=== PATIENT | male | born 1945 | race Caucasian/White ===

== ENCOUNTER 2017-10-18 15:26 | Inpatient (IN) | payer OTHER, MEDICARE ==
[2017-10-18 15:58] VITALS: BMI 30.7
[2017-10-18 16:48] LABS: EOS # 0.2 K/uL (0.0-0.7); HEMOGLOBIN 14.1 g/dL (12.0-18.0)
[2017-10-18 17:04] LABS: INR 1.1; PROTHROMBIN TIME 12.2 SECONDS (9.7-12.2)
[2017-10-18 17:07] LABS: ALB/GLOB RATIO 1.5 (1.0-2.1); ALBUMIN 4.4 g/dL (3.5-5.0); ALT/SGPT 47 U/L (21-72); AST/SGOT 24 U/L (17-59); BLOOD UREA NITROGEN 15 mg/dL (9-20); CALCIUM 9.2 mg/dl (8.6-10.4); GFR AFRICAN-AMERICAN > 60; GFR NON-AFRICAN AMERICAN > 60
[2017-10-18 17:13] LABS: BASO # 0.1 K/uL (0.0-0.2); BASO % 0.8 % (0.0-2.0); EOS % 2.5 % (0.0-4.0); LYMPH # 1.8 K/uL (1.0-4.3); MEAN CELL VOLUME 87.7 fL (80.0-94.0); MEAN CORPUSCULAR HEMOGLOBIN 30.8 pg (27.0-31.0); MEAN CORPUSCULAR HGB CONC 35.1 g/dL (33.0-37.0); MEAN PLATELET VOLUME 9.5 fL (7.2-11.7); MONO # 0.6 K/uL (0.0-0.8); NEUT # 5.8 K/uL (1.8-7.0); NEUT % 68.7 % (50.0-75.0); NRBC % 0.2 % (0.0-2.0); RBC 4.58 Mil/uL (4.40-5.90); WHITE BLOOD COUNT 8.4 K/uL (4.8-10.8)
[2017-10-18 17:16] LABS: B-TYPE NATRIURETIC PEPTIDE 63.6 pg/mL (0-900)
--- NOTE | 2017-10-18 17:26 | C.PDOC ---
History Of Present Illness 72 year old male presents to the emergency department with complaints of chest pressure and SOB for the past 2 days. He reports that the pain is located to the left side of his chest. Patient states he was seen by Dr. Henley and was sent to ER for evaluation and admission. Time Seen by Provider: 10/18/17 16:16 Chief Complaint (Nursing): Chest Pain History Per: Patient History/Exam Limitations: no limitations Onset/Duration Of Symptoms: Days Current Symptoms Are (Timing): Still Present Past Medical History Reviewed: Historical Data, Nursing Documentation, Vital Signs Vital Signs: Last Vital Signs Temp 98.1 F 10/19/17 07:00 Pulse 68 10/19/17 07:00 Resp 20 10/19/17 07:00 BP 132/90 10/19/17 07:00 Pulse Ox 97 10/19/17 07:00 Family History: States: No Known Family Hx - Social History Hx Tobacco Use: No Hx Alcohol Use: Yes (wine) Hx Substance Use: No - Immunization History Hx Tetanus Toxoid Vaccination: No Hx Influenza Vaccination: No Hx Pneumococcal Vaccination: No Review Of Systems Except As Marked, All Systems Reviewed And Found Negative. Cardiovascular: Positive for: Chest Pain Respiratory: Positive for: Shortness of Breath Physical Exam - Physical Exam Appears: Non-toxic, No Acute Distress Skin: Normal Color, Warm, Dry Head: Atraumatic, Normacephalic Eye(s): bilateral: Normal Inspection, PERRL, EOMI Nose: Normal Oral Mucosa: Moist Neck: Supple Cardiovascular: Rhythm Regular, No Murmur Respiratory: Normal Breath Sounds, No Rales, No Rhonchi, No Wheezing Gastrointestinal/Abdominal: Normal Exam, Soft, No Tenderness Extremity: Bilateral: Atraumatic, Normal Color And Temperature, Normal ROM Neurological/Psych: Oriented x3, Normal Speech ED Course And Treatment - Laboratory Results Result Diagrams: 10/18/17 16:44 10/18/17 16:44 O2 Sat by Pulse Oximetry: 98 (RA) Pulse Ox Interpretation: Normal - Other Rad Chest X-Ray X-Ray: Read By Radiologist Interpretation: FINDINGS: Examination limited by habitus. LUNGS: Mild left basilar atelectasis. No focal consolidation. Please note that chest x-ray has limited sensitivity for the detection of pulmonary masses. PLEURA: No significant pleural effusion identified. No definite pneumothorax . CARDIOVASCULAR: Cardiomegaly. OSSEOUS STRUCTURES: Degenerative changes. VISUALIZED UPPER ABDOMEN: Unremarkable. OTHER FINDINGS: None. IMPRESSION: Cardiomegaly. Mild left basilar atelectasis. Medical Decision Making Medical Decision Making: Impression: Unstable angina Plan: -EKG -Labs -Chest X-Ray -Plavix 16:36 - Consult with Dr. Brandon. 17:25 - Discussed case with Dr. Henley and will admit for telemetry. ekg - nsr at 81 bpm with rbbb, no st or twave abn. Disposition Discussed With Dr.: Jose Luis Henley Counseled Patient/Family Regarding: Studies Performed, Diagnosis - Disposition Disposition: HOSPITALIZED Disposition Time: 17:26 Condition: FAIR - Clinical Impression Clinical Impression: Chest pain, Unstable angina - Scribe Statement The provider has reviewed the documentation as recorded by the Chantell Maddox Provider Attestation: All medical record entries made by the Chantell were at my direction and personally dictated by me. I have reviewed the chart and agree that the record accurately reflects my personal performance of the history, physical exam, medical decision making, and the department course for this patient. I have also personally directed, reviewed, and agree with the discharge instructions and disposition.
--- NOTE | 2017-10-18 18:27 | RAD ---
HISTORY: SOB COMPARISON: None available. TECHNIQUE: Chest, one view. FINDINGS: Examination limited by habitus. LUNGS: Mild left basilar atelectasis. No focal consolidation. Please note that chest x-ray has limited sensitivity for the detection of pulmonary masses. PLEURA: No significant pleural effusion identified. No definite pneumothorax . CARDIOVASCULAR: Cardiomegaly. OSSEOUS STRUCTURES: Degenerative changes. VISUALIZED UPPER ABDOMEN: Unremarkable. OTHER FINDINGS: None. IMPRESSION: Cardiomegaly. Mild left basilar atelectasis.
--- NOTE | 2017-10-18 23:23 | CP.PCM.CON ---
History of Present Illness - History of Present Illness History of Present Illness: abnormal stress test and unstable angina For cardiac cath tomorrow afternoon around 4pm NPO after lunch Past Patient History - Past Medical History & Family History Past Medical History?: Yes - Past Social History Smoking Status: Former Smoker - CARDIAC Hx Hypercholesterolemia: Yes Hx Hypertension: Yes - PULMONARY Hx Respiratory Disorders: No - NEUROLOGICAL Hx Neurological Disorder: No - HEENT Hx Deafness: ([place]) - RENAL Hx Chronic Kidney Disease: No Other/Comment: BPH - ENDOCRINE/METABOLIC Hx Endocrine Disorders: No - HEMATOLOGICAL/ONCOLOGICAL Hx Blood Disorders: No - INTEGUMENTARY Hx Dermatological Problems: No - MUSCULOSKELETAL/RHEUMATOLOGICAL Hx Musculoskeletal Disorders: No Hx Falls: No - GASTROINTESTINAL Hx Gastrointestinal Disorders: No - GENITOURINARY/GYNECOLOGICAL Hx Genitourinary Disorders: No - PSYCHIATRIC Hx Substance Use: No - SURGICAL HISTORY Hx Surgeries: Yes Other/Comment: retina sx - ANESTHESIA Hx Anesthesia: Yes Hx Anesthesia Reactions: No Hx Malignant Hyperthermia: No Has any member of the family had a problem w/ anesthesia?: No Meds Allergies/Adverse Reactions: Allergies Allergy/AdvReac Type Severity Reaction Status Date / Time No Known Allergies Allergy Verified 11/24/13 15:34 Results - Vital Signs Recent Vital Signs: Last Vital Signs Temp 98.3 F 10/18/17 21:20 Pulse 78 10/18/17 21:20 Resp 18 10/18/17 21:20 BP 178/72 H 10/18/17 21:20 Pulse Ox 97 10/18/17 21:20 - Labs Result Diagrams: 10/18/17 16:44 10/18/17 16:44 Labs: Laboratory Results - last 24 hr 10/18/17 10/18/17 10/18/17 16:44 16:44 16:44 WBC 8.4 RBC 4.58 Hgb 14.1 Hct 40.1 MCV 87.7 MCH 30.8 MCHC 35.1 RDW 14.0 Plt Count 214 MPV 9.5 Neut % (Auto) 68.7 Lymph % (Auto) 21.0 [place] % (Auto) 7.0 Eos % (Auto) 2.5 Baso % (Auto) 0.8 Neut # (Auto) 5.8 Lymph # (Auto) 1.8 [place] # (Auto) 0.6 Eos # (Auto) 0.2 Baso # (Auto) 0.1 PT 12.2 INR 1.1 APTT 32 Sodium 141 Potassium 4.3 Chloride 104 Carbon Dioxide 30 Anion Gap 12 BUN 15 Creatinine 0.8 Est GFR ( Amer) > 60 Est GFR (Non-Af Amer) > 60 Random Glucose 118 H Calcium 9.2 Total Bilirubin 0.6 AST 24 ALT 47 Alkaline Phosphatase 80 Troponin I < 0.0120 NT-Pro-B Natriuret Pep 63.6 Total Protein 7.2 Albumin 4.4 Globulin 2.9 Albumin/Globulin Ratio 1.5
[2017-10-19 03:03] VITALS: RESP 20
--- NOTE | 2017-10-19 12:39 | CP.PCM.PN ---
Subjective - Date & Time of Evaluation Date of Evaluation: 10/19/17 Time of Evaluation: 12:36 - Subjective Subjective: PHYSICIST SOLID STATE NOTIFIED BY PRIMARY RN RAINE THAT THE [facility] AND IS [facility]QUESTING THAT I ORDER THEM. PLEASE NOTE, PT WAS ADMITTED YESTERDAY AT 1725 AND HAD A CARDIOLOGY CONSULT WHILE STILL IN THE ED. NO NURSING STAFF DISCUSSED/DOCUMENTED WITH CARDIOLOGY CONSULT THE NEED FOR 2 MORE SILVANO PANELS. I NOTIFIED DR. REESE OF THIS AND ALTHOUGH PT IS FOR STRESS TEST THIS AFTERNOON, HE WOULD LIKE 2 M ORE SILVANO'S DONE. ORDERS PLACED FOR SILVANO # 2 DUE AT 1300 AND SILVANO # 3 DUE AT 2100. NO FURTHER ORDERS. Objective - Vital Signs/Intake and Output Vital Signs (last 24 hours): Temp Pulse Resp BP Pulse Ox 98.1 F 68 20 132/90 98 10/19/17 07:00 10/19/17 07:00 10/19/17 07:00 10/19/17 07:00 10/19/17 10:23 Intake and Output: 10/19/17 10/19/17 06:59 18:59 Intake Total 100 Balance 100 - Medications Medications: Current Medications Aspirin (Aspirin Chewable) 81 mg PO DAILY [facility] Last Admin: 10/19/17 09:46 Dose: 81 mg Clopidogrel Bisulfate (Plavix) 75 mg PO DAILY [facility] Last Admin: 10/19/17 09:46 Dose: 75 mg Enoxaparin Sodium (Lovenox) 40 mg SC DAILY [facility] Pneumococcal Polyvalent Vaccine (Pneumovax 23 Vaccine) 0.5 ml IM .ONCE ONE Stop: 10/20/17 10:01 - Labs Labs: 10/18/17 16:44 10/18/17 16:44 PT 12.2 SECONDS (9.7-12.2) 10/18/17 16:44 INR 1.1 10/18/17 16:44 APTT 32 SECONDS (21-34) 10/18/17 16:44
[2017-10-19] MEDS: Enoxaparin 40 mg Syringe SC SCH (13:03)
[2017-10-19 14:37] LABS: CK-MB 1.21 ng/mL (0.0-3.38)
--- NOTE | 2017-10-19 17:32 | CARD ---
APPROVED REPORT Date of service: 10/18/2017 EKG Measurement Heart [id number] <Conclusion> Normal sinus rhythm Possible Left atrial enlargement Right bundle branch block Abnormal ECG
[2017-10-19] MEDS ORDERED: Iodixanol 320 MG/ML 100 ML BOTTLE IV ONE ×2 (19:18→19:38)
[2017-10-19] MEDS ORDERED: Midazolam 2 MG/2 ML VIAL ONE (19:22)
[2017-10-19] MEDS ORDERED: Sodium Chloride 0.45% 1,000 ML IV SCH (20:15)
[2017-10-19 23:27] LABS: CK-MB 0.89 ng/mL (0.0-3.38)
--- NOTE | 2017-10-20 06:53 | CP.PCM.PN ---
Subjective - Date & Time of Evaluation Date of Evaluation: 10/19/17 Time of Evaluation: 21:15 - Subjective Subjective: Patient s/p cath Normal Coronaries Normal EF Medical management Objective - Vital Signs/Intake and Output Vital Signs (last 24 hours): Temp Pulse Resp BP Pulse Ox 97.7 F 71 20 146/75 95 10/20/17 04:18 10/20/17 04:18 10/20/17 04:18 10/20/17 04:18 10/20/17 04:18 Intake and Output: 10/19/17 10/20/17 18:59 06:59 Intake Total 680 Output Total 400 Balance 280 - Medications Medications: Current Medications Aspirin (Aspirin Chewable) 81 mg PO DAILY [facility] Last Admin: 10/19/17 09:46 Dose: 81 mg Clopidogrel Bisulfate (Plavix) 75 mg PO DAILY [facility] Last Admin: 10/19/17 09:46 Dose: 75 mg Enoxaparin Sodium (Lovenox) 40 mg SC DAILY [facility] Last Admin: 10/19/17 13:03 Dose: Not Given Sodium Chloride (Sodium Chloride 0.45%) 1,000 mls @ 70 mls/hr IV .[id number] [facility] Stop: 10/20/17 08:00 Pneumococcal Polyvalent Vaccine (Pneumovax 23 Vaccine) 0.5 ml IM .ONCE ONE Stop: 10/20/17 10:01 - Labs Labs: 10/18/17 16:44 10/18/17 16:44 PT 12.2 SECONDS (9.7-12.2) 10/18/17 16:44 INR 1.1 10/18/17 16:44 APTT 32 SECONDS (21-34) 10/18/17 16:44
[2017-10-20] MEDS ORDERED: Pneumococcal 23-Valent Vaccine IM ONE (10:00)
[2017-10-20] MEDS: Enoxaparin 40 mg Syringe SC SCH (10:58)
[2017-10-20 16:47] VITALS: BP 118/67; PULSE 67; TEMP 98.6; O2SAT 98
--- NOTE | 2017-10-20 18:24 | HP ---
Copied To: Jose Luis Henley MD Attending MD: Jose Luis Henley MD HISTORY OF PRESENT ILLNESS: This is a 72-year-old male with history of multiple medical problems, presented to the office on the day of admission with intermittent chest pain. The patient has been having this chest pain, which is not consistent with him at rest or during exertion. The patient had a nuclear stress test done as an outpatient last week that was suggestive for inferior wall ischemia. The patient was sent to emergency room, evaluated and admitted for further management. The patient had a Cardiology consultation requested. Other review of systems is negative. ALLERGIES: NO KNOWN ALLERGY. MEDICATIONS: Flomax 0.4 mg daily, Avodart 0.5 mg daily, bisoprolol 2.5 mg daily, and losartan 50 mg daily. Medications were reviewed as per MAR. SOCIAL HISTORY: No history of smoking, EtOH or substance abuse. FAMILY HISTORY: Not contributory. PAST MEDICAL HISTORY: Benign prostatic hypertrophy, hypertension, hypercholesterolemia. PHYSICAL EXAMINATION: GENERAL: The patient was not in any cardiopulmonary distress. VITAL SIGNS: Blood pressure 130/90, temperature 98.1, respiratory rate 20, and pulse 68. HEENT: Pupils equal, reactive to light. Normal-appearing mucosa of the conjunctivae, oropharynx and nasal membrane mucosa. NECK: Supple. No JVD. No carotid bruit. No lymph node. No thyromegaly. CHEST AND LUNGS: Bilateral symmetrical expansion. Good air exchange. No rales, no rhonchi. CARDIOVASCULAR SYSTEM: PMI not localized. S1 and S2. No additional sounds. ABDOMEN: Normoactive bowel sounds. No tenderness. No organomegaly. No masses. EXTREMITIES: No cyanosis, no clubbing, no edema. [employer]: Alert, awake, oriented x3. No neurological deficit could be appreciated. ASSESSMENT: 1. Chest pain with positive nuclear stress test, rule out acute coronary syndrome. 2. Benign prostatic hypertrophy. 3. Hypertension. 4. Hypercholesterolemia. PLAN: Admit the patient to telemetry floor and cardiac enzymes. Cardiology consult and follow recommendations. Resume the patient's home medications. Jose Luis Henley MD
== END 2017-10-20 19:14 | disposition home or self-care (01) | DRG 311 ==
LOC: C.ER 15:26 → C.9E 17:25 → OBSVTOIN 17:25 → C.6T 20:21
PROVIDERS: ADMIT Internal Medicine; ATTEND Internal Medicine
DX: I20.0 Unstable angina (principal); E78.00 Pure hypercholesterolemia, unspecified; I10 Essential (primary) hypertension; N40.0 Benign prostatic hyperplasia without lower urinary tract symptoms; Z87.891 Personal history of nicotine dependence